=== PATIENT | male | born 1935 | race Caucasian/White ===

== ENCOUNTER 2018-08-07 06:04 | Inpatient (IN) ==
--- NOTE | 2018-08-06 19:08 | MH ---
cc: Luis Rodriguez Rohit K MD Mercer,Marlon Beth,Nita Dudley,David Cruz DO DATE OF ADMISSION: 08/07/2018 ADMITTING DIAGNOSIS: Synovial cyst, lumbar spine. HISTORY OF PRESENT ILLNESS: This is an 82-year-old male who presented to us for an evaluation of low back pain extending into the right buttocks. He states he has had low back problems since he was 48 years old. He states he would get a cortisone injection every 4-5 years and it would help for about 3-4 years. since the beginning of 2018, the cortisone injections from his primary care physician have not been helping him. He also states he has pain in the left third toe and right ankle up the lateral right calf. He has had several injections with pain management consisting of 2 epidural steroid injections, a facet injection, and an SI joint injection without any improvement. He has also had cortisone injections with his primary care physician, Dr. Saldana, which was not helping. He denies any radicular pain from his back down his leg. He denies any numbness in the lower extremities. He denies any bowel or bladder incontinence, although states he has urgency of bowel, which has been a chronic issue. He denies any perineal numbness. He denies any weakness in the lower extremities. He has been to physical therapy on a few different occasions. PAST MEDICAL HISTORY: Significant for irritable bowel syndrome, coronary artery disease, chronic low back pain, diabetes mellitus, hypothyroidism, hypertension, hyperlipidemia. CURRENT MEDICATIONS: 1. Amlodipine 5 mg 1/2 tablet daily. 2. Atorvastatin 80 mg 1/2 tablet p.o. daily. 3. Aspirin 81 mg p.o. daily. This was placed on hold prior to surgical intervention. 4. Januvia 100 mg daily. 5. Levothyroxine 50 mcg p.o. daily. 6. Lisinopril 20 mg/hydrochlorothiazide 12.5 mg p.o. daily. 7. Metoprolol 50 mg p.o. daily. 8. Viberzi 100 mg 1/2 tablet daily. FAMILY HISTORY: His mother had diabetes mellitus. SOCIAL HISTORY: He is a former smoker. He quit in 1998. REVIEW OF SYSTEMS: CONSTITUTIONAL: Denies any fever, chills. EARS, NOSE AND THROAT: The patient reports hearing loss. CARDIOVASCULAR: Denies any chest pain or palpitations. RESPIRATORY: No cough or shortness of breath. GENITOURINARY: No dysuria or hematuria. MUSCULOSKELETAL: Positive for low back pain and loss of balance and falls. NEUROLOGIC: No difficulty with speech or memory. PSYCHIATRIC: No anxiety or depression symptoms. ENDOCRINE: No polyuria or polydipsia. HEMATOLOGIC: No bruising or bleeding tendencies. PHYSICAL EXAMINATION: HEENT: Head is normocephalic, atraumatic. NECK: Supple. No carotid bruits heard on auscultation. LUNGS: Clear to auscultation bilaterally. HEART: Regular rate and rhythm. Normal S1, S2. ABDOMEN: Soft, nontender, positive bowel sounds. SKIN: No cyanosis or erythema. MUSCULOSKELETAL: He has 5/5 strength in the lower extremities. He ambulates with a cane. NEUROLOGIC: He is awake, alert, and oriented. Cranial nerves 2-12 are grossly intact. His speech is fluent. Comprehension is good. Sensation is intact in the lower extremities to light touch. Reflexes are 2+ in the patella and very diminished in the Achilles bilaterally. IMPRESSION: An 82-year-old male with complaints of chronic back pain radiating into the right buttock area. He has tried physical therapy as well as interventional pain management without relief. He has been using a cane and at times a walker to ambulate because of the pain and the legs give out on him. He also has chronic numbness in the left foot, middle toe. His MRI of the lumbar spine revealed L2-L3 synovial cyst with facet arthropathy and right lateral recess spinal stenosis. He also has L4-L5 and L5-S1 disk protrusions and overall mild stenosis. He has advanced L3-L4 degenerative disk disease with a grade 1 retrolisthesis. The L2-L3 right facet arthropathy and synovial cyst appear to be the most symptomatic at this point. PLAN: We have discussed treatment options with the patient and his daughter, and they request that we consider surgical intervention. We have discussed the procedure of a right L2-L3 hemilaminotomy with medial facetectomy, and synovial cyst resection was discussed, as well as the risks, benefits, alternatives and recovery time. No guarantees were given to the patient as to the results of the surgery. He was informed that if his symptoms do not improve that he may possibly need surgical intervention and lower level disk protrusions. We have discussed the procedure as well as risks, benefits, alternatives and recovery time in great detail with the patient. Risks involved with surgery include, but are not limited to bleeding, infection, muscle weakness, voice hoarseness, difficulty swallowing, heart attack, stroke, blood clots, cyst reaccumulation, among others. We have obtained cardiac clearance from his research specialist, Dr. David Dudley, who placed him at an adequate but increased risk for surgery. The patient understands the risks involved with surgery and is requesting to proceed, and he was therefore scheduled accordingly. MADAY Griffin MD ESP/robert , 05:44 PM , 05:57 PM
[2018-08-07] MEDS ORDERED: Chlorhexidine Gluconate 2% 1 Pack (2 Cloths) TOPICAL ONE (06:27)
[2018-08-07] MEDS ORDERED: Metoprolol Tartrate 25 MG Tablet PO ONE (06:27)
[2018-08-07] MEDS ORDERED: Sod Chloride 0.9% Inj 1,000 ML IV.SIG SCH (06:30)
[2018-08-07] MEDS ORDERED: Sodium Chlor 0.9% Inj 500 ML IV.SIG SCH (07:00)
[2018-08-07] MEDS ORDERED: Vancomycin Inj 1,000 MG in Sodium Chlor 0.9% Inj 250 ML IV.SIG ONE (07:00)
[2018-08-07] MEDS ORDERED: Thrombin Topical Soln 5,000 UNIT Vial TOPICAL ONE (08:10)
[2018-08-07] MEDS ORDERED: Bupivacaine/Epinephrine 0.5% Inj 50 ML Vial ONE (08:10)
[2018-08-07] MEDS ORDERED: Gelatin Size 100 Topical Foam ONE (08:11)
[2018-08-07] MEDS ORDERED: methylPREDNISolone acetate 40 MG/ML VIAL ONE (08:11)
[2018-08-07] MEDS ORDERED: Bupivacaine Liposomal PF 1.3% Inj 20 ML Vial ONE (09:25)
[2018-08-07] MEDS ORDERED: Bupivacaine Liposomal PF 1.3% Inj 20 ML Vial INFILTRATN ONE (09:39)
--- NOTE | 2018-08-07 10:30 | P.OP ---
- Preoperative Diagnosis (1) Chronic low back pain with right-sided sciatica (2) Degenerative lumbar spinal stenosis (3) Synovial cyst of lumbar facet joint Date of procedure: 08/07/18 Procedure: Lumbar right L2-3 hemilaminotomy with medial facetectomy and synovial cyst resection; microsurgical technique Anesthesia: RIANA Surgeon: Parish Menon MD Free Lance Model: Alee Horn Estimated blood loss (mL): 10 Pathology: none sent Operation and Findings: Following administration of general endotracheal anesthesia, patient received vancomycin 1 g intravenously. Sequential compression devices were placed for DVT prophylaxis. He was then turned in prone position on Lake frame and the Kushal table and all pressure points adequately padded. The lumbar region was then shaved and prepped with a Betadine and ChloraPrep. Sterile draping undertaken with Ioban. Midline incision overlying the L2-3 levels was then made after infiltrating the skin with 0.5% Marcaine with epinephrine solution. The skin incision was made extending down through the fascia and then using the subperiosteal plane on the right side the muscular attachments to the spinous process and lamina were detached. Intraoperative fluoroscopy was used for level confirmation and further dissection undertaken using microtechnique with microscope magnification. The inferior portion of the right L2 and superior portion of the L3 lamina was then drilled out and the underlying ligamentum flavum also removed. There was significant facet arthropathy noted as well as severe spinal stenosis at L2-3 levels and the medial portion of the right facet was also resected and the lateral recess decompressed. Synovial cyst which was adherent to the dorsal and lateral aspect of the dura was also identified which is compressing on the thecal sac along with the traversing and exiting nerve root. The cyst was resected after dissecting it off the dura without any CSF leak or dural perforation. Epidural venous stasis achieved with the bipolar cautery along with Gelfoam and thrombin and bone wax used at the laminotomy edges for hemostasis. The area was then copiously irrigated with vancomycin solution. Depo-Medrol 40 mg was also injected in the epidural space. The retractors removed and the muscle fascia proximal using 2-0 Vicryl interrupted stitches. Exparel local anesthetic was also injected. 3-0 Vicryl subcuticular stitches were also placed in an interrupted fashion and planned skin closure was with Mastisol and Steri-Strips. A sterile dressing was then applied and the patient then turned in the supine position and extubated and taken to recovery room in stable condition. There were no intraoperative complications and all sponge and needle count was correct at the end of the procedure. Estimated blood loss about 10 cc.
--- NOTE | 2018-08-07 10:45 | XR ---
EXAM DATE: 08/07/2018 10:39 AM EST AGE/SEX: 82 years / Male INDICATIONS: L2-L3 hemilaminectomy. Level localization. CLINICAL DATA: This is the patient's initial encounter. Patient reports that signs and symptoms have been present for 1 day and indicates a pain score of Nonresponsive. MEDICAL/SURGICAL HISTORY: Non-responsive. Non-responsive. COMPARISON: No prior exams available for comparison. FINDINGS: Lateral view of the lumbar spine demonstrates a posterior level localizer at the L3 level. CONCLUSION: Level localizer at L3. Electronically signed by: Waylon Roblero MD Board Certified Radiologist 08/07/2018 10:44 AM EST
[2018-08-07] MEDS ORDERED: fentaNYL Citrate Inj 100 MCG/2 ML Ampul ONE (11:03)
[2018-08-07 12:07] VITALS: RESP 18
[2018-08-07 12:56] VITALS: BP 109/56; PULSE 52; TEMP 97.3; O2SAT 97
== END 2018-08-07 12:55 | disposition home or self-care (01) | DRG 517 ==
LOC: HSDC 06:04 → HSDI 11:52
PROVIDERS: ADMIT Neurological Surgery; ATTEND Neurological Surgery
CPT/HCPCS: 36415; 71020; 71046; 72020; 76000; 80053; 81001; 85025; 85610; 85730; 87641; 93005; C9290; J0131; J1030; J3010; J3370; J7050; J7120